=== PATIENT | female | born 1955 | race Caucasian/White ===

== ENCOUNTER 2019-09-02 06:32 | Day surgery (SDC) | payer MEDICARE, OTHER ==
[~2019-09-02 06:32] MED LIST: Lactated Ringers 1,000 ML IV SCH; Sodium Chloride 0.9% 10 ML Syringe FLUSH PRN
[2019-09-02] MEDS ORDERED: Propofol 200 MG/20 ML SDV IV ONE (06:33)
--- NOTE | 2019-09-02 09:14 | PCM.HP.2 ---
H&P History of Present Illness - General Date of Service: 09/02/19 Admit Problem/Dx: Admission Diagnosis/Problem Admission Diagnosis/Problem Colonoscopy Source of Information: Patient, Old Records History Limitations: Reports: No Limitations - History of Present Illness Initial Comments - Free Text/Narative: Here for colonoscopy for FH Colon Ca in Father - Related Data Allergies/Adverse Reactions: Allergies Allergy/AdvReac Type Severity Reaction Status Date / Time atorvastatin calcium Allergy Swelling Verified 09/02/19 07:22 [From Lipitor] Home Medications: Home Meds Aspirin [Low Dose Aspirin EC] 81 mg PO DAILY 04/09/13 [History] Baclofen 10 mg PO TID PRN 04/09/13 [History] Calcium Carbonate/Vitamin D3 [Caltrate 600 Plus D3 Tablet] 1,000 mg PO BID 04/09 [History] Enalapril Maleate 5 mg PO DAILY 04/09/13 [History] Meloxicam 15 mg PO DAILY 04/09/13 [History] Multivitamin with Minerals [Multiple Vitamin] 1 tab PO DAILY 04/09/13 [History] Nitroglycerin 1 spray SL ASDIRECTED PRN 04/09/13 [History] Triamcinolone Acetonide [Kenalog 0.1% Crm] 1 applic TOP ASDIRECTED PRN 04/09/13 [History] traMADol [Ultram] 50 mg PO Q6H PRN 04/09/13 [History] Furosemide 40 mg PO DAILY 08/26/13 [History] Albuterol [Proventil HFA] 2 puff INH Q4H PRN 09/01/19 [History] Benzonatate [Tessalon Perle] 100 mg PO TID PRN 09/01/19 [History] Famotidine [Pepcid] 40 mg PO BEDTIME 09/01/19 [History] Baclofen 10 mg PO DAILY 09/02/19 [History] Past Medical History HEENT History: Reports: None Cardiovascular History: Reports: High Cholesterol, Hypertension Respiratory History: Reports: Sleep Apnea Gastrointestinal History: Reports: Diverticulosis, Gastritis, GERD, Helicobacter Pylori BACKFILLER History: Reports: Musculoskeletal History: Reports: Osteoarthritis Neurological History: Reports: MS Psychiatric History: Reports: None Endocrine/Metabolic History: Reports: Obesity/BMI 30+ Hematologic History: Reports: None Immunologic History: Reports: None Oncologic (Cancer) History: Reports: Breast Dermatologic History: Reports: None - Past Surgical History Head Surgeries/Procedures: Reports: None HEENT Surgical History: Reports: None Cardiovascular Surgical History: Reports: None Respiratory Surgical History: Reports: None GI Surgical History: Reports: Appendectomy, Colonoscopy, EGD Female Surgical History: Reports: Breast Biopsy, Section, Mastectomy , Tubal Ligation, Other (See Below) Other Female Surgeries/Procedures: OVARIAN CYSTECTOMY Neurological Surgical History: Reports: Other (See Below) Other Neurological Surgeries/Procedures: L2-3 CLEM Musculoskeletal Surgical History: Reports: Arthroscopic Knee, Carpal Tunnel, Knee Replacement, Shoulder Surgery, Other (See Below) Other Musculoskeletal Surgeries/Procedures:: R CARPAL TUNNEL RELEASE. BILAT TOTAL KNEE REPLACEMENT. BILAT KNEE SCOPE. R SHOULDER SURGERY Oncologic Surgical History: Reports: Lumpectomy, Mastectomy Dermatological Surgical History: Reports: None Social & Family History - Tobacco Use Smoking Status *Q: Never Smoker - Caffeine Use Caffeine Use: Reports: Coffee - Recreational Drug Use Recreational Drug Use: No Drug Use in Last 12 Months: No H&P Review of Systems - Review of Systems: Review Of Systems: Comprehensive ROS is negative, except as noted in HPI. Exam - Exam Exam: See Below - Vital Signs Vital Signs: Last Vital Signs Temp 98.2 F 09/02/19 07:00 Pulse 78 09/02/19 07:00 Resp 16 09/02/19 07:00 BP 149/84 H 09/02/19 07:00 Pulse Ox 97 09/02/19 07:00 Weight: 105.687 kg - Exam General: Alert, Oriented Lungs: Clear to Auscultation, Normal Respiratory Effort Cardiovascular: Regular Rate, Regular Rhythm GI/Abdominal Exam: Soft, Non-Tender - Patient Data Lab Results Last 24 hrs: Laboratory Results - last 24 hr 09/02/19 Range/Units 06:50 SARS Virus RNA (PCR) Negative (NEGATIVE) Sepsis Event Note - Focused Exam Vital Signs: Vital Signs Temp Pulse Resp BP Pulse Ox 09/02/19 07:00 98.2 F 78 16 149/84 H 97 Date Exam was Performed: 09/02/19 Time Exam was Performed: 09:11 Problem List Initiated/Reviewed/Updated: Yes Orders Last 24hrs: Active Orders 24 hr Category Date Time Status Patient Status [ADT] Routine ADT 09/02/19 06:30 Active Patient to Empty Bladder [RC] ASDIRECTED Care 09/02/19 06:30 Active Verify Patient Consent Obtain [RC] ASDIRECTED Care 09/02/19 06:30 Active Nothing Per Oral Diet [DIET] Diet 09/01/19 Dinner Ordered Lactated Ringers [Ringers, Lactated] 1,000 ml Med 09/02/19 06:30 Active IV ASDIRECTED Sodium Chloride 0.9% [Saline Flush] Med 09/02/19 06:30 Active 10 ml FLUSH ASDIRECTED PRN Peripheral IV Insertion Adult [OM.PC] Routine Oth 09/02/19 06:30 Ordered Resuscitation Status Routine Resus Stat 09/01/19 11:42 Ordered Medication Orders Lactated Ringer's (Ringers, Lactated) 1,000 mls @ 125 mls/hr IV ASDIRECTED RAMILA Last Admin: 09/02/19 07:45 Dose: 125 mls/hr Sodium Chloride (Saline Flush) 10 ml FLUSH ASDIRECTED PRN PRN Reason: Keep Vein Open Assessment/Plan Comment:: FH Colon Ca in father Will proceed with colonoscopy; risks and complications reviewed, consent obtained
--- NOTE | 2019-09-02 09:15 | PCM.OPNOTE ---
- General Post-Op/Procedure Note Date of Surgery/Procedure: 09/02/19 Operative Procedure(s): Colonoscopy Findings: sig tics Pre Op Diagnosis: FH Colon Ca Post-Op Diagnosis: Same Anesthesia Technique: MAC Primary Surgeon: Umer Kate Anesthesia Provider: Batsheva David Complications: None Condition: Good
[2019-09-02 10:18] VITALS: BP 154/81; PULSE 72
--- NOTE | 2019-09-02 12:24 | OR ---
DATE OF OPERATION: 09/02/2019 SURGEON: Umer Kate MD PREOPERATIVE DIAGNOSIS: Family history of colon cancer in father. POSTOPERATIVE DIAGNOSIS: Sigmoid diverticulosis. PROCEDURE: Colonoscopy. ANESTHESIA: MAC. DESCRIPTION OF PROCEDURE: The patient was brought to the procedure room, where she was placed on her left side and IV sedation administered. Digital rectal exam was performed, which was normal. The colonoscope was inserted and advanced to the level of the cecum with some difficulty getting through a tortuous colon. I required pressure on the abdomen to get through the sigmoid colon and around the hepatic flexure. I was able to reach the cecum, which was confirmed by identifying the appendiceal lumen and ileocecal valve. Prep was good with some thick stool remaining that was irrigated and suctioned. Upon withdrawing the scope, the ascending, transverse, and descending colon were normal in appearance. The sigmoid colon was tortuous with multiple diverticula present. Rectum was normal and retroflexion was normal. Air was removed and the scope withdrawn. The patient tolerated the procedure well and returned to Recovery in stable condition. Recommend routine colon screening again in 5 years. /[id number]
== END 2019-09-02 10:40 | disposition home or self-care (01) ==
LOC: FB.SDS 06:32
PROVIDERS: ATTEND Surgery
DX: Z12.11 Encounter for screening for malignant neoplasm of colon (principal); K57.30 Diverticulosis of large intestine without perforation or abscess without bleeding; E78.00 Pure hypercholesterolemia, unspecified; I10 Essential (primary) hypertension; E66.9 Obesity, unspecified; K21.9 Gastro-esophageal reflux disease without esophagitis; Z11.59 Encounter for screening for other viral diseases; Z88.8 Allergy status to other drugs, medicaments and biological substances; Z79.82 Long term (current) use of aspirin; Z79.899 Other long term (current) drug therapy; Z98.890 Other specified postprocedural states; Z80.0 Family history of malignant neoplasm of digestive organs; Z68.41 Body mass index [BMI] 40.0-44.9, adult
CPT/HCPCS: 00811-QZ; J2704; J7120; U0002